=== PATIENT | male | born 1990 | race Asian ===

== ENCOUNTER 2016-09-23 03:23 | Emergency (ER) | payer OTHER ==
[2016-09-23 03:28] VITALS: O2SAT 99
[2016-09-23 03:32] VITALS: TEMP 36.5
--- NOTE | 2016-09-23 03:33 | EMERGENCY ROOM VISIT NOTE ---
History Report prepared by Bayleeibprecious: Aida Pal Under the Supervision of: Dr. Viry Loja M.D. First contact with patient: 03:25 Stated Complaint: ALCOHOL History of Present Illness The patient is a 26 year old male who presents to the Emergency Room with complaints of an episode of alcohol intoxication occurring [employer]. Per EMS, police were performing a routine check of an apartment building. They heard the patient moaning in the hallway and found him semi-conscious. EMS denies any trauma. He vomited en route to the ED. The HPI is limited secondary to intoxication. 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 Past Medical & Surgical Medical Problems: (1) No Known Active Medical Problems Family History No pertinent family history Social History Smoking Status: Unknown if Ever Smoked Alcohol Use: occasionally Housing Status: lives with roommate Occupation Status: student Current/Historical Medications Unable to Obtain Active Prescriptions or Reported Meds Physical Exam Vital Signs Date Time Temp Pulse Resp B/P Pulse Ox O2 Delivery O2 Flow Rate FiO2 09/23/16 05:42 74 12 100/68 97 Room Air 09/23/16 04:34 70 14 102/48 95 Room Air 09/23/16 03:32 36.5 70 14 132/82 95 Room Air 09/23/16 03:30 77 09/23/16 03:28 99 Room Air Physical Exam Vital signs reviewed. General: Odor of EtOH in the breath, disheveled 26-year-old male. No signs of trauma. HEENT: Mild scleral injection bilaterally, PERRLA, neck supple, dry mucous membranes. Cardiovascular: Regular rate and rhythm, no extra sounds. Pulmonary: Clear to auscultation bilaterally, normal work of breathing. Abdomen: Soft, nontender, nondistended, positive bowel sounds. Musculoskeletal: Upper and lower extremities atraumatic, no peripheral edema Skin: Warm, dry, no rash. Atraumatic. Neurologic: Patient is currently nonverbal. Medical Decision & Procedures Laboratory Results 09/23/16 03:59 Test 09/23/16 03:59 Anion Gap 9.0 mmol/L (3-11) Estimated GFR () 139.3 Estimated GFR (Non- 120.2 BUN/Creatinine Ratio 10.5 (10-20) Calcium Level 8.4 mg/dl (8.5-10.1) Ethyl Alcohol mg/dL 271.0 mg/dl (0-3) Laboratory results per my review. ED Course 0325: Past medical records reviewed. The patient was evaluated in room A9B. A complete history and physical examination was performed. 0730: The patient was signed out to Dr. Rayo at the change of shift. Medical Decision The differential diagnosis of the patient's presentation includes alcohol ingestion, illicit drug use, trauma, and dehydration. This patient was evaluated and appeared to be in no significant distress. The patient is markedly intoxicated. He did have vomit in his hair. The patient is atraumatic on exam. There is no reported history of trauma although the patient was found in the hallway by police. 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 Blood alcohol level is 271. The patient will be observed in the emergency department until he reached a more sober state. Case has been signed out to Dr. Rayo at the change of shift, please see his notes for final disposition. Impression Primary Impression: Alcohol use with intoxication Scribe Attestation The scribe's documentation has been prepared under my direction and personally reviewed by me in its entirety. I confirm that the note above accurately reflects all work, treatment, procedures, and medical decision making performed by me. Departure Information Dispostion Home / Self-Care Prescriptions Unable to Obtain Active Prescriptions or Reported Meds Referrals No Doctor, Assigned (PCP) [facility] Forms HOME CARE DOCUMENTATION FORM, IMPORTANT VISIT INFORMATION Patient Instructions [facility]: [employer] Students and Alcohol Related Visits, [facility] Additional Instructions Diagnosis: Alcohol intoxication Drink plenty of clear liquids, such as water or Gatorade. Follow-up with [facility] as directed. Tylenol 650 mg every 6 hours as needed for pain. Avoid excessive alcohol consumption. Return to emergency for worsening of symptoms or medical concerns.
[2016-09-23 04:36] LABS: BLOOD UREA NITROGEN 9 mg/dl (7-18); BUN/CREATININE RATIO 10.5 (10-20); CALCIUM 8.4 mg/dl (8.5-10.1); CARBON DIOXIDE 27 mmol/L (21-32); CHLORIDE 107 mmol/L (98-107); CREATININE 0.88 mg/dl (0.60-1.40); GLUCOSE 124 mg/dl (70-99); POTASSIUM 3.4 mmol/L (3.5-5.1); SODIUM 143 mmol/L (136-145)
[2016-09-23 09:34] VITALS: BP 116/59; PULSE 92; O2SAT 98
--- NOTE | 2016-09-23 13:10 | EMERGENCY ROOM VISIT NOTE ---
ED Visit Note Patient was signed out to me at change shift at 7:30 AM in the morning. Plan was for the patient to sober up and when she was able to ambulate to be reevaluated and to be discharged. Patient was discharged by nursing staff prior to my evaluation and had no contact with this patient.
== END 2016-09-23 08:50 | disposition home or self-care (01) ==
LOC: EDBD 03:23 → C.EDA 03:24
DX: F10.129 Alcohol abuse with intoxication, unspecified (principal); Y90.8 Blood alcohol level of 240 mg/100 ml or more